=== PATIENT | male | born 1935 | race Caucasian/White ===

== ENCOUNTER 2016-12-19 17:34 | Inpatient (IN) | payer MEDICARE, OTHER ==
[~2016-12-19] VITALS: Ht 165.1 cm; Wt 78.5 kg
[2016-12-19 18:30] VITALS: BP 136/78; RESP 18
[2016-12-19] MEDS ORDERED: LACTULOSE 30ML CUP PO PRN (19:00)
[2016-12-19] MEDS ORDERED: BISACODYL 10 MG SUPP PR PRN (19:00)
[2016-12-19 20:09] VITALS: Ht 165.1 cm; Wt 78.5 kg
[2016-12-19 20:25] VITALS: BP 134/60; PULSE 71; RESP 18
[2016-12-19] MEDS ORDERED: GLUCOSE GEL 15 GRAM TUBE BUCCAL PRN (22:30)
[2016-12-19] MEDS ORDERED: GLUCAGON 1 MG INJ IM PRN (22:30)
[2016-12-19] MEDS ORDERED: SENNA TAB PO PRN (22:30)
[2016-12-19] MEDS ORDERED: DEXTROSE 50% 50 ML SYRINGE IV PRN ×2 (22:30)
[2016-12-19] MEDS ORDERED: GLUCOSE GEL 15 GRAM TUBE PO PRN ×2 (22:30)
[2016-12-19] MEDS ORDERED: QUETIAPINE 25 MG TAB PO PRN (22:30)
[2016-12-19] MEDS: INSULIN ASPART [NOVOLOG] 3 ML PEN SC SCH (23:00)
[2016-12-20 02:00] VITALS: BP 127/59; RESP 18
[2016-12-20] MEDS ORDERED: ACCU-CHEK XX SCH (02:00)
[2016-12-20] MEDS: ACCU-CHEK XX SCH (02:00)
[2016-12-20] MEDS: LEVOTHYROXINE 50 MCG TAB PO SCH (06:22)
[2016-12-20 07:00] VITALS: BP 127/66; RESP 18
[2016-12-20] MEDS: metFORMIN 500 MG TAB PO SCH ×2 (08:19→17:41)
[2016-12-20] MEDS: MULTIVITAMINS 30 ML CUP PO SCH (08:19)
[2016-12-20] MEDS: DOCUSATE SODIUM 100 MG CAP PO SCH ×2 (08:19→20:42)
[2016-12-20] MEDS: THIAMINE 100 MG TAB PO SCH (08:19)
[2016-12-20] MEDS: FOLIC ACID 1 MG TAB PO SCH (08:19)
[2016-12-20] MEDS: NYSTATIN SUSP 5 ML CUP PO SCH ×4 (08:19→20:42)
[2016-12-20] MEDS: AMLODIPINE 10 MG TAB PO SCH (08:21)
[2016-12-20] MEDS: glyBURIDE 5 MG TAB PO SCH ×2 (08:21→17:41)
[2016-12-20] MEDS: ATENOLOL 25 MG TAB PO SCH (08:21)
[2016-12-20] MEDS: CYANOCOBALAMIN 500 MCG TAB PO SCH (08:22)
[2016-12-20] MEDS: POLYETHYLENE GLYCOL 17 GM PACKET PO SCH (08:22)
[2016-12-20] MEDS: INSULIN ASPART [NOVOLOG] 3 ML PEN SC SCH ×4 (08:34→20:54)
[2016-12-20] MEDS: HEPARIN 5,000 UNIT/0.5 ML VIAL SC SCH ×2 (08:35→20:50)
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
[2016-12-20 20:00] VITALS: BP 127/74; RESP 18
[2016-12-20] MEDS: DUTASTERIDE 0.5 MG CAP PO SCH (20:42)
[2016-12-20] MEDS: TAMSULOSIN (SR) 0.4 MG CAP PO SCH (20:42)
[2016-12-20] MEDS: QUETIAPINE 25 MG TAB PO SCH (20:42)
[2016-12-21 02:00] VITALS: BP 124/72; RESP 18
[2016-12-21] MEDS: ACCU-CHEK XX SCH (02:00)
[2016-12-21] MEDS: LEVOTHYROXINE 50 MCG TAB PO SCH (05:38)
[2016-12-21 07:30] VITALS: BP 113/67; RESP 19
[2016-12-21 08:00] VITALS: BP 113/57; RESP 19
[2016-12-21] MEDS: INSULIN ASPART [NOVOLOG] 3 ML PEN SC SCH ×4 (08:31→20:45)
[2016-12-21] MEDS: NYSTATIN SUSP 5 ML CUP PO SCH ×4 (09:00→20:38)
[2016-12-21] MEDS: CYANOCOBALAMIN 500 MCG TAB PO SCH (09:04)
[2016-12-21] MEDS: POLYETHYLENE GLYCOL 17 GM PACKET PO SCH (09:04)
[2016-12-21] MEDS: metFORMIN 500 MG TAB PO SCH ×2 (09:04→17:35)
[2016-12-21] MEDS: ATENOLOL 25 MG TAB PO SCH (09:05)
[2016-12-21] MEDS: THIAMINE 100 MG TAB PO SCH (09:05)
[2016-12-21] MEDS: DOCUSATE SODIUM 100 MG CAP PO SCH ×2 (09:05→20:36)
[2016-12-21] MEDS: FOLIC ACID 1 MG TAB PO SCH (09:05)
[2016-12-21] MEDS: AMLODIPINE 10 MG TAB PO SCH (09:05)
[2016-12-21] MEDS: glyBURIDE 5 MG TAB PO SCH ×2 (09:06→17:05)
[2016-12-21] MEDS: MULTIVITAMINS 30 ML CUP PO SCH (09:06)
[2016-12-21] MEDS: HEPARIN 5,000 UNIT/0.5 ML VIAL SC SCH ×2 (09:08→20:44)
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
[2016-12-21 14:00] VITALS: BP 116/74; RESP 18
[2016-12-21] MEDS: TAMSULOSIN (SR) 0.4 MG CAP PO SCH (20:37)
[2016-12-21] MEDS: QUETIAPINE 25 MG TAB PO SCH (20:37)
[2016-12-21] MEDS: DUTASTERIDE 0.5 MG CAP PO SCH (20:37)
[2016-12-21 21:00] VITALS: BP 116/80; RESP 18
[2016-12-22] MEDS: ACCU-CHEK XX SCH (02:00)
[2016-12-22 02:34] VITALS: BP 120/72; RESP 18
[2016-12-22] MEDS: LEVOTHYROXINE 50 MCG TAB PO SCH (06:11)
[2016-12-22 07:30] VITALS: BP 104/58; RESP 18
[2016-12-22] MEDS: glyBURIDE 5 MG TAB PO SCH ×2 (07:59→17:22)
[2016-12-22] MEDS: metFORMIN 500 MG TAB PO SCH ×2 (07:59→17:21)
[2016-12-22 08:00] VITALS: BP 104/58; RESP 18
[2016-12-22] MEDS: INSULIN ASPART [NOVOLOG] 3 ML PEN SC SCH ×4 (08:00→20:10)
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
[2016-12-22] MEDS: ATENOLOL 25 MG TAB PO SCH (09:00)
[2016-12-22] MEDS: AMLODIPINE 5 MG TAB PO SCH (09:00)
[2016-12-22] MEDS: HEPARIN 5,000 UNIT/0.5 ML VIAL SC SCH ×2 (09:19→20:16)
[2016-12-22] MEDS: DOCUSATE SODIUM 100 MG CAP PO SCH ×2 (09:19→20:10)
[2016-12-22] MEDS: FOLIC ACID 1 MG TAB PO SCH (09:19)
[2016-12-22] MEDS: MULTIVITAMINS 30 ML CUP PO SCH (09:20)
[2016-12-22] MEDS: THIAMINE 100 MG TAB PO SCH (09:20)
[2016-12-22] MEDS: NYSTATIN SUSP 5 ML CUP PO SCH ×4 (09:20→20:10)
[2016-12-22] MEDS: CYANOCOBALAMIN 500 MCG TAB PO SCH (09:20)
[2016-12-22] MEDS: POLYETHYLENE GLYCOL 17 GM PACKET PO SCH (09:20)
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
[2016-12-22 14:00] VITALS: BP 123/60; RESP 20
[2016-12-22] MEDS: LEVOFLOXACIN 250 MG TAB PO SCH (14:27)
[2016-12-22] MEDS: QUETIAPINE 25 MG TAB PO SCH (20:10)
[2016-12-22] MEDS: DUTASTERIDE 0.5 MG CAP PO SCH (20:10)
[2016-12-22] MEDS: TAMSULOSIN (SR) 0.4 MG CAP PO SCH (20:10)
[2016-12-22 20:50] VITALS: BP 125/76; RESP 18
[2016-12-22] MEDS: ACETAMINOPHEN 325 MG TAB PO PRN (21:30)
[2016-12-23 01:41] VITALS: BP 114/63; RESP 18
[2016-12-23] MEDS: ACCU-CHEK XX SCH (02:00)
[2016-12-23] MEDS: LEVOTHYROXINE 50 MCG TAB PO SCH (05:48)
[2016-12-23] MEDS: LEVOFLOXACIN 250 MG TAB PO SCH (05:48)
[2016-12-23 07:00] VITALS: BP 118/73; RESP 18
[2016-12-23] MEDS: glyBURIDE 5 MG TAB PO SCH ×2 (07:29→16:34)
[2016-12-23] MEDS: metFORMIN 500 MG TAB PO SCH ×3 (07:30→16:34)
[2016-12-23] MEDS: INSULIN ASPART [NOVOLOG] 3 ML PEN SC SCH ×4 (07:35→20:46)
[2016-12-23] MEDS: DOCUSATE SODIUM 100 MG CAP PO SCH ×2 (08:27→20:45)
[2016-12-23] MEDS: MULTIVITAMINS 30 ML CUP PO SCH (08:28)
[2016-12-23] MEDS: POLYETHYLENE GLYCOL 17 GM PACKET PO SCH (08:28)
[2016-12-23] MEDS: ATENOLOL 25 MG TAB PO SCH (08:30)
[2016-12-23] MEDS: NYSTATIN SUSP 5 ML CUP PO SCH ×4 (08:31→20:47)
[2016-12-23] MEDS: THIAMINE 100 MG TAB PO SCH (08:32)
[2016-12-23] MEDS: CYANOCOBALAMIN 500 MCG TAB PO SCH (08:32)
[2016-12-23] MEDS: FOLIC ACID 1 MG TAB PO SCH (08:33)
[2016-12-23] MEDS: HEPARIN 5,000 UNIT/0.5 ML VIAL SC SCH ×2 (08:33→20:53)
[2016-12-23] MEDS: AMLODIPINE 5 MG TAB PO SCH (08:38)
[2016-12-23 20:00] VITALS: BP 118/72; RESP 18
[2016-12-23] MEDS: QUETIAPINE 25 MG TAB PO SCH (20:45)
[2016-12-23] MEDS: TAMSULOSIN (SR) 0.4 MG CAP PO SCH (20:45)
[2016-12-23] MEDS: DUTASTERIDE 0.5 MG CAP PO SCH (20:45)
[2016-12-23] MEDS: ACETAMINOPHEN 325 MG TAB PO PRN (22:48)
[2016-12-24 02:00] VITALS: BP 127/77; RESP 20
[2016-12-24] MEDS: ACCU-CHEK XX SCH (02:00)
[2016-12-24] MEDS: LEVOFLOXACIN 250 MG TAB PO SCH (05:29)
[2016-12-24] MEDS: LEVOTHYROXINE 50 MCG TAB PO SCH (05:29)
[2016-12-24 07:00] VITALS: BP 115/65; RESP 18
[2016-12-24] MEDS: INSULIN ASPART [NOVOLOG] 3 ML PEN SC SCH ×4 (07:35→21:00)
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
[2016-12-24] MEDS ORDERED: ERGOCALCIFEROL 50,000 UNIT CAP PO SCH (09:00)
--- NOTE | 2016-12-24 09:18 | CONS ---
Date/Time of Note Date/Time of Note DATE: 12/24/16 TIME: 09:18 Consult Date/Type/Reason Admit Date/Time Dec 19, 2016 at 17:34 Objective Vital Signs Date Time Temp Pulse Resp B/P Pulse Ox O2 Delivery O2 Flow Rate FiO2 12/24/16 07:00 98.6 76 18 115/65 98 12/22/16 08:00 Room Air Intake and Output 12/23/16 12/23/16 12/24/16 15:00 23:00 07:00 Intake Total 1200 ml 500 ml Output Total 600 ml Balance 600 ml 500 ml INTERDISCIPLINARY TEAM CONFERENCE BOWEL- Cont BLADDER-Cont SKIN- intact OT- DRESSING-sba BATHING-sba TOILETING-sba PT- BED MOBILITY-sba TRANSFERS-cga AMBULATION-cga 150 feet SPEECH- COGNITION-MA DYPHAGIA-regular and thin liquids A/P- Interdisciplinary team conference held today. Please see interdisciplinary sheet. Working toward d.cGloria on 12/26 with post discharge follow up of physical therapy, occupational therapy. Results/Medications Result Diagram: 12/22/16 0642 12/23/16 2111 Results 24 hrs Laboratory Tests Test 12/23/16 11:54 12/23/16 16:32 12/23/16 20:38 12/23/16 20:55 Bedside Glucose 81 117 38 *L 55 L Test 12/23/16 21:10 12/23/16 21:11 12/23/16 21:25 12/24/16 02:01 Bedside Glucose 57 L 74 56 L Glucose Level 57 #L Test 12/24/16 02:21 12/24/16 04:41 12/24/16 08:00 Bedside Glucose 91 120 104 Medications Current Medications Lactulose (Enulose) 20 gm DAILY PRN PO CONSTIPATION; Start 12/19/16 at 19:00 Bisacodyl (Dulcolax Supp) 10 mg DAILY PRN [place] CONSTIPATION; Start 12/19/16 at 19 :00 Acetaminophen (Tylenol Tab) 650 mg Q4H PRN PO PAIN Last administered on 22:48; Admin Dose 650 MG; Start 12/19/16 at 19:00 Docusate Sodium (Colace) 100 mg BID PO Last administered on 12/23/16 20:45; Admin Dose 100 MG; Start 12/20/16 at 09:00 Folic Acid (Folic Acid) 1 mg DAILY PO Last administered on 12/23/16 08:33; Admin Dose 1 MG; Start 12/20/16 at 09:00 Heparin Sodium (Porcine) (Heparin (5000 Units/0.5 ml)) 5,000 unit Q12 SC Last administered on 12/23/16 20:53; Admin Dose 5,000 UNIT; Start 12/20/16 at 09:00 Nystatin (Nystatin Susp) 1 ml QID PO Last administered on 12/23/16 20:47; Admin Dose 1 ML; Start 12/20/16 at 09:00 Polyethylene Glycol (Miralax) 17 gm DAILY PO Last administered on 12/23/16 08: 28; Admin Dose 17 GM; Start 12/20/16 at 09:00 Multivitamins (Multivitamin) 30 ml DAILY PO Last administered on 12/23/16 08: 28; Admin Dose 30 ML; Start 12/20/16 at 09:00 Quetiapine Fumarate (Seroquel) 25 mg BID PRN PO AGITATION; Start 12/19/16 at 22 :30 Quetiapine Fumarate (Seroquel) 50 mg QHS PO Last administered on 12/23/16 20: 45; Admin Dose 50 MG; Start 12/20/16 at 21:00 Senna (Senokot) 1 tab QHS PRN PO CONSTIPATION Last administered on 12/23/16 20 :44; Admin Dose 1 TAB; Start 12/19/16 at 22:30 Thiamine HCl (Vitamin B1) 100 mg DAILY PO Last administered on 12/23/16 08:32 ; Admin Dose 100 MG; Start 12/20/16 at 09:00 Atenolol (Tenormin) 25 mg DAILY PO Last administered on 12/23/16 08:30; Admin Dose 25 MG; Start 12/20/16 at 09:00 Cyanocobalamin (Vitamin B12) 1,000 mcg DAILY PO Last administered on 12/23/16 08:32; Admin Dose 1,000 MCG; Start 12/20/16 at 09:00 Dutasteride (Avodart) 0.5 mg QHS PO Last administered on 12/23/16 20:45; Admin Dose 0.5 MG; Start 12/20/16 at 21:00 Tamsulosin HCl (Flomax) 0.4 mg DAILY@21 PO Last administered on 12/23/16 20:45 ; Admin Dose 0.4 MG; Start 12/20/16 at 21:00 Levothyroxine Sodium (Synthroid) 50 mcg DAILY@06 PO Last administered on 05:29; Admin Dose 50 MCG; Start 12/20/16 at 06:00 Miscellaneous Information 1 ea NOTE XX ; Start 12/19/16 at 22:30 Glucose (Glutose) 15 gm Q15M PRN PO DECREASED GLUCOSE Last administered on 12/24 02:07; Admin Dose 15 GM; Start 12/19/16 at 22:30 Glucose (Glutose) 22.5 gm Q15M PRN PO DECREASED GLUCOSE Last administered on 02:04; Admin Dose 22.5 GM; Start 12/19/16 at 22:30 Dextrose (D50w Syringe) 25 ml Q15M PRN IV DECREASED GLUCOSE; Start 12/19/16 at 22:30 Dextrose (D50w Syringe) 50 ml Q15M PRN IV DECREASED GLUCOSE; Start 12/19/16 at 22:30 Glucagon (Glucagen) 1 mg Q15M PRN IM DECREASED GLUCOSE; Start 12/19/16 at 22:30 Glucose (Glutose) 15 gm Q15M PRN BUCCAL DECREASED GLUCOSE; Start 12/19/16 at 22 :30 Ergocalciferol (Drisdol) 50,000 unit Mo@09 PO ; Start 12/24/16 at 09:00 Diagnostic Test (Pha) (Accu-Chek) 1 ea 02 XX Last administered on 12/24/16 02: 00; Admin Dose 1 EA; Start 12/20/16 at 02:00 Amlodipine Besylate (Norvasc) 5 mg DAILY PO Last administered on 12/23/16 08: 38; Admin Dose 5 MG; Start 12/22/16 at 09:00 Levofloxacin (Levaquin) 250 mg DAILY@06 PO Last administered on 12/24/16 05:29 ; Admin Dose 250 MG; Start 12/22/16 at 14:00; Stop 12/26/16 at 06:01 Metformin HCl (Glucophage) 500 mg DAILY PO ; Start 12/24/16 at 09:00 BRADLY BEST MD Dec 24, 2016 09:18
[2016-12-24] MEDS: MULTIVITAMINS 30 ML CUP PO SCH (09:51)
[2016-12-24] MEDS: POLYETHYLENE GLYCOL 17 GM PACKET PO SCH (09:51)
[2016-12-24] MEDS: HEPARIN 5,000 UNIT/0.5 ML VIAL SC SCH ×2 (09:52→22:00)
[2016-12-24] MEDS: metFORMIN 500 MG TAB PO SCH (09:52)
[2016-12-24] MEDS: FOLIC ACID 1 MG TAB PO SCH (09:52)
[2016-12-24] MEDS: NYSTATIN SUSP 5 ML CUP PO SCH ×4 (09:52→22:31)
[2016-12-24] MEDS: CYANOCOBALAMIN 500 MCG TAB PO SCH (09:53)
[2016-12-24] MEDS: ATENOLOL 25 MG TAB PO SCH (09:53)
[2016-12-24] MEDS: THIAMINE 100 MG TAB PO SCH (09:53)
[2016-12-24] MEDS: DOCUSATE SODIUM 100 MG CAP PO SCH ×2 (09:53→22:30)
[2016-12-24] MEDS: AMLODIPINE 5 MG TAB PO SCH (09:53)
[2016-12-24] MEDS: QUETIAPINE 25 MG TAB PO SCH (22:30)
[2016-12-24] MEDS: TAMSULOSIN (SR) 0.4 MG CAP PO SCH (22:30)
[2016-12-24] MEDS: DUTASTERIDE 0.5 MG CAP PO SCH (22:30)
[2016-12-25] MEDS: ACCU-CHEK XX SCH (01:24)
[2016-12-25 02:00] VITALS: BP 134/70; PULSE 84; RESP 16
[2016-12-25] MEDS: LEVOFLOXACIN 250 MG TAB PO SCH (06:20)
[2016-12-25] MEDS: LEVOTHYROXINE 50 MCG TAB PO SCH (06:20)
[2016-12-25] MEDS: INSULIN ASPART [NOVOLOG] 3 ML PEN SC SCH ×4 (07:35→21:00)
[2016-12-25 08:00] VITALS: BP 119/70; RESP 18
[2016-12-25] MEDS: MULTIVITAMINS 30 ML CUP PO SCH (09:01)
[2016-12-25] MEDS: DOCUSATE SODIUM 100 MG CAP PO SCH ×2 (09:02→21:33)
[2016-12-25] MEDS: NYSTATIN SUSP 5 ML CUP PO SCH ×4 (09:02→21:33)
[2016-12-25] MEDS: THIAMINE 100 MG TAB PO SCH (09:02)
[2016-12-25] MEDS: FOLIC ACID 1 MG TAB PO SCH (09:02)
[2016-12-25] MEDS: AMLODIPINE 5 MG TAB PO SCH (09:02)
[2016-12-25] MEDS: HEPARIN 5,000 UNIT/0.5 ML VIAL SC SCH ×2 (09:03→21:39)
[2016-12-25] MEDS: POLYETHYLENE GLYCOL 17 GM PACKET PO SCH (09:04)
[2016-12-25] MEDS: ATENOLOL 25 MG TAB PO SCH (09:04)
[2016-12-25] MEDS: metFORMIN 500 MG TAB PO SCH (09:04)
[2016-12-25] MEDS: CYANOCOBALAMIN 500 MCG TAB PO SCH (09:04)
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
[2016-12-25 14:00] VITALS: BP 119/74; RESP 18
[2016-12-25 20:00] VITALS: BP 129/76; RESP 18
[2016-12-25] MEDS: DUTASTERIDE 0.5 MG CAP PO SCH (21:32)
[2016-12-25] MEDS: TAMSULOSIN (SR) 0.4 MG CAP PO SCH (21:32)
[2016-12-25] MEDS: QUETIAPINE 25 MG TAB PO SCH (21:33)
[2016-12-25] MEDS: ACETAMINOPHEN 325 MG TAB PO PRN (23:22)
[2016-12-26 02:00] VITALS: BP 139/66; RESP 18
[2016-12-26] MEDS: ACCU-CHEK XX SCH (02:15)
[2016-12-26] MEDS: LEVOFLOXACIN 250 MG TAB PO SCH (06:42)
[2016-12-26] MEDS: LEVOTHYROXINE 50 MCG TAB PO SCH (06:42)
[2016-12-26 08:00] VITALS: BP 139/79; RESP 18
[2016-12-26] MEDS: INSULIN ASPART [NOVOLOG] 3 ML PEN SC SCH (08:28)
[2016-12-26] MEDS: HEPARIN 5,000 UNIT/0.5 ML VIAL SC SCH (08:29)
[2016-12-26] MEDS: THIAMINE 100 MG TAB PO SCH (08:29)
[2016-12-26] MEDS: NYSTATIN SUSP 5 ML CUP PO SCH (08:30)
[2016-12-26] MEDS: FOLIC ACID 1 MG TAB PO SCH (08:30)
[2016-12-26] MEDS: CYANOCOBALAMIN 500 MCG TAB PO SCH (08:30)
[2016-12-26] MEDS: POLYETHYLENE GLYCOL 17 GM PACKET PO SCH (08:31)
[2016-12-26] MEDS: DOCUSATE SODIUM 100 MG CAP PO SCH (08:31)
[2016-12-26] MEDS: MULTIVITAMINS 30 ML CUP PO SCH (08:31)
[2016-12-26] MEDS: ATENOLOL 25 MG TAB PO SCH (08:31)
[2016-12-26] MEDS: AMLODIPINE 5 MG TAB PO SCH (08:31)
[2016-12-26] MEDS: metFORMIN 500 MG TAB PO SCH (08:31)
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
== END 2016-12-26 11:30 | disposition home health service (06) | DRG 945 ==
LOC: VRC 17:34
PROVIDERS: ADMIT Physical Medicine & Rehabilitation; ATTEND Internal Medicine Nephrology
PROC: F07Z5FZ Bed Mobility Treatment using Assistive, Adaptive, Supportive or Protective Equipment (ICD-10-PCS; principal; 2016-12-20)
PROC: F07Z8FZ Transfer Training Treatment using Assistive, Adaptive, Supportive or Protective Equipment (ICD-10-PCS; 2016-12-20)
PROC: F07Z9FZ Gait Training/Functional Ambulation Treatment using Assistive, Adaptive, Supportive or Protective Equipment (ICD-10-PCS; 2016-12-20)
PROC: F08Z2FZ Grooming/Personal Hygiene Treatment using Assistive, Adaptive, Supportive or Protective Equipment (ICD-10-PCS; 2016-12-20)
PROC: F08Z1FZ Dressing Techniques Treatment using Assistive, Adaptive, Supportive or Protective Equipment (ICD-10-PCS; 2016-12-20)
PROC: F08Z0FZ Bathing/Showering Techniques Treatment using Assistive, Adaptive, Supportive or Protective Equipment (ICD-10-PCS; 2016-12-20)
DX: S06.6X9D Traumatic subarachnoid hemorrhage with loss of consciousness of unspecified duration, subsequent encounter (principal); I26.99 Other pulmonary embolism without acute cor pulmonale; N17.9 Acute kidney failure, unspecified; N39.0 Urinary tract infection, site not specified; E11.9 Type 2 diabetes mellitus without complications; I10 Essential (primary) hypertension; B96.20 Unspecified Escherichia coli [E. coli] as the cause of diseases classified elsewhere; F07.81 Postconcussional syndrome; S22.49XD Multiple fractures of ribs, unspecified side, subsequent encounter for fracture with routine healing; V03.90XD Pedestrian on foot injured in collision with car, pick-up truck or van, unspecified whether traffic or nontraffic accident, subsequent encounter; E03.9 Hypothyroidism, unspecified; N40.0 Benign prostatic hyperplasia without lower urinary tract symptoms; G89.4 Chronic pain syndrome; S35.41 Laceration of renal blood vessel; B96.4 Proteus (mirabilis) (morganii) as the cause of diseases classified elsewhere; Z79.4 Long term (current) use of insulin; Z86.73 Personal history of transient ischemic attack (TIA), and cerebral infarction without residual deficits; Z85.46 Personal history of malignant neoplasm of prostate
CPT/HCPCS: 80048; 80053; 81001; 82947; 82962; 83735; 84100; 85025; 87081; 87086; 92507; 92523; 92526; 92610; 97110; 97112; 97116; 97150; 97163; 97167; 97530; 97535; J1644; J1815